=== PATIENT | male | born 1985 | race Caucasian/White ===

== ENCOUNTER 2019-05-02 08:57 | Emergency (ER) | payer MEDICAID, SELFPAY ==
[2019-05-02 08:58] VITALS: BP 149/90; PULSE 78; RESP 18; TEMP 36.6; O2SAT 99; BMI 23.5
--- NOTE | 2019-05-02 09:08 | ED.VIS.GEN ---
History of Present Illness Chief Complaint: Back Informant: Patient Onset: Days Context: Onset with activity Timing: Intermittent Current Severity: Moderate Maximum Severity: Moderate Narrative: The patient presents to the emergency department with left low back pain that radiates down his posterior left leg to his knee. He states that started about a month ago. He is been seeing a chiropractor. He states he is been doing anti-inflammatories and manipulation. He states it is gotten better, still been having the symptoms. He denies any trouble urinating or moving his bowels. He denies any numbness in his groin. He denies any fevers or chills. He cannot recall any definitive trauma. He is still able to ambulate. He has no history of IV drug abuse or of immunosuppression. Prior similar symptoms: No Recent Illness/Hospitalization: No Past Medical History - Allergies and Home Meds Allergies/Adverse Reactions: Allergies No Known Allergies Allergy (Verified 05/02/19 08:59) Primary Care Physician: NOT,DEFINED [Primary Care Provider] - Prior records reviewed: Yes Past Medical History: None Surgical History: no surgical history Lives: With Family Review of Systems General: Denies: Chills, Fever, Sweats Eyes: Denies: Visual changes - bilaterally, Diplopia ENT: Denies: Rhinorrhea, Sore throat Cardiovascular: Denies: Chest pain, Palpitations Respiratory: Denies: Dyspnea, Cough, Dyspnea on exertion Gastrointestinal: Denies: Abdominal pain, Nausea, Vomiting, Diarrhea, Melena, Hematochezia Genitourinary: Denies: Dysuria, Hematuria, Frequency Musculoskeletal: Reports: Arthralgias, Back pain. Denies: Extremity Pain Skin: Denies: Rash, Wounds Neurological: Denies: Headache, Weakness, Numbness Physical Exam Vital Signs/Narrative: Vital Signs Temp Pulse Resp BP Pulse Ox 05/02/19 08:58 98 F 78 18 149/90 H 99 Inital Vital Signs reviewed: Yes General: Well nourished, Well developed, No Acute Distress Head: Normocephalic, Atraumatic Eyes: Perrl, EOMI ENT: Moist mucous membranes, No rhinorrhea Neck: Supple, Nontender Cardiovascular: Regular rate, Regular rhythm, No murmurs Respiratory: No distress, CTA bilaterally, Chest nontender Abdomen: Soft, Nontender, Nondistended, Normal bowel sounds, No masses Back: Normal Inspection, - - Tenderness in the paraspinal musculature of the left. Straight leg raise on the left re-creates pain, but no paresthesia. Normal dorsiflexion, plantar flexion, and extensor hallucis longus.. Negative for: Nontender, CVA tenderness, Spinal tenderness Extremities: Nontender, No edema Skin: Normal color, No rash Neurological: Alert, Oriented x3, Cranial nerves II-XII grossly intact, Normal Strength, Normal Sensation Psychological: Normal affect, Normal Mood Diagnostic/Tx/Re-eval - Medical Decision Making The patient symptoms do seem consistent with a peripheral radiculopathy. He has no known weakness. He has no red flag symptoms. He is been doing stretching and manipulation with improvement. At this point, I do feel that staying the course of be the most appropriate. I am going to prescribe him a Medrol Dosepak and antispasmodics. I also counseled him on the concerning symptoms and reasons to return to the emergency department. He will be discharged home. Impression 1. Left low back pain with sciatica ED Disposition - Plan for ED Patient: Instructions: BACK PAIN w/ SCIATICA Prescriptions: cycloBENZAPRine HCl [Flexeril] 10 mg PO TID PRN #20 tab PRN Reason: Muscle Spasm Prescription Printed MethylPREDNISolone DosePak [Medrol DosePak] 4 mg PO UD #1 box Prescription Printed Referrals: NOT,DEFINED [Primary Care Provider] -
== END 2019-05-02 09:33 | disposition home or self-care (01) ==
LOC: ED 09:29
PROVIDERS: Emergency Provider Emergency Medicine
DX: M54.42 Lumbago with sciatica, left side (principal)
CPT/HCPCS: 99282

== ENCOUNTER 2019-06-01 09:00 | Outpatient (RCR) | payer MEDICAID, SELFPAY ==
--- NOTE | 2019-05-12 14:42 | HP.PTEVAL ---
Patient's Visit Information SUMMER JOSÉ is a 33 year old M referred to Physical Therapy by [facility] Pal[facility] MD with a diagnosis of LBP. Date of Evaluation: 05/12/19 Physical Therapist: José Luis Obregon PT, ATC - Visit Plan Frequency: 2x /Week Duration: 4-6 Weeks Plan: Postural edu, REIL, core stab ex's, and HEP - Subjective Findings: Pt. has lumbar radiculopathy that radiates into L knee and sometimes into gastrocnemius region. Pt stated this issue has been going on for about 3 months. 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 Pt. reports his pain at rest is 3/10. Pt. reports his pain at its worst is 8/10. Pt stated pain has caused him to wake up durign the night and has trouble falling asleep due to pain. Pt. sleeps with legs propped up and on his back. Pt. has trouble standing in shower in the morning. Pt. stated his pain gets worse when leaning foward. Pt. states raising leg up will help relieve pain. Pt. takes ibuprofen for pain. Pt is not able to stand/walk for long periods of time. - Pain LBP Pain Intensity (Out of 10): 3 Pain Intensity Range: 8 - Objective Neuro: B LE sensation is WNL to light touch. B patellar reflex= 2/3. MMT: B knee ext= 3/5 and painful. All other LE's 5/5 throughout. L/S ROM: Pt is severely limited with flex and ext. ONly minor pain with B SB. Repeated movements: REIL 10x2 centralized all L LE sx's - Goals Goal 1:: Decrease LBP x 50% to aid with sleep Goal Time Frame: 4-6 Weeks Goal 2:: Increase L/S ROM x 1 grade to aid with decreasing pain, Goal Time Frame: 4-6 Weeks Goal 3:: I with HEP Goal Time Frame: 4-6 Weeks - Rehabilitation Potential Physical Therapy Diagnosis: Pt has LBP, L LE radiculopathy, and limited ROM secondary to L/S disc derrangement Rehabilitation Potential: Good - Anticipated Interventions Patient/Client Instruction: Educate patient on: Condition, Plan of Care For the Purpose of:: To improve self management Therapeutic Exercise to Include: Strength training, Endurance training, Body mechanics, Postural training, Active ROM, Dynamic Lumbar Stabilization For the Purpose of:: To decrease pain, To increase ROM, To improve muscle performance and motor function IF ES: Yes Cryotherapy (ice pack, ice massage): Yes For the Purpose of:: To decrease pain Thank you for the opportunity to evaluate your patient. For Medicare and Medicare HMO plans, please review the plan of care and approve it. It will need to be FAXED BACK to us at [phone] for Medicare purposes. For Medicare only, by signing this I certify the plan of care. Please let me know if there are questions or concerns regarding this plan of care. Physician Signature: Date:
--- NOTE | 2019-07-26 13:20 | HP.PT.NRP ---
HP - Discharge Summary (1) - Patient Information SUMMER JOSÉ was seen in my office for initial evaluation on 05/12/19. The following Plan of Care was established for this patient: Initial Frequency: 2x /Week Initial Duration: 4-6 Weeks - Anticipated Interventions Patient/Client Instruction: Educate patient on: Condition, Plan of Care For the Purpose of:: To improve self management Therapeutic Exercise to Include: Strength training, Endurance training, Body mechanics, Postural training, Active ROM, Dynamic Lumbar Stabilization For the Purpose of:: To decrease pain, To increase ROM, To improve muscle performance and motor function IF ES: Yes Cryotherapy (ice pack, ice massage): Yes For the Purpose of:: To decrease pain This patient was last seen in our office . Pertinent comments regarding their Physical therapy will appear below: Pt was treated for 6 PT visits for LBP through the date of 06/01/19. Pt has not returned through todays date and is therefore discontinued at this time. At this point I will be discontinuing this patient from physical therapy. I would be happy to see this patient again in the future if found appropriate by the physician. Thank you! José Luis Obregon, PT, ATC
== END 2019-06-01 19:00 | disposition home or self-care (01) ==
LOC: PT 09:00
PROVIDERS: Family Provider Family Medicine; PCP Family Medicine; Referring Provider Chiropractor; Visit Provider Chiropractor
DX: M54.40 Lumbago with sciatica, unspecified side (principal)
CPT/HCPCS: 97014; 97110; 97161; G0283